=== PATIENT | male | born 1980 | race Caucasian/White ===

== ENCOUNTER 2024-02-16 11:02 | Emergency (ER) | payer SELFPAY ==
[~2024-02-16] VITALS: Ht 170.2 cm; Wt 80.0 kg
[2024-02-16 11:08] VITALS: O2SAT 97
[2024-02-16 11:52] VITALS: BP 112/63; PULSE 87; RESP 18; TEMP 36.61404; O2SAT 99
[2024-02-16 11:58] LABS: HEMATOCRIT. 32.3 % (42.0-52.0); HEMOGLOBIN. 11.1 g/dL (14.0-18.0); MEAN CORPUSCULAR HEMOGLOBIN 33.5 pg (28.0-32.0); MEAN CORPUSCULAR HGB CONC 34.3 g/dL (31.0-37.0); MEAN CORPUSCULAR VOLUME 97.7 fL (80.0-94.0); MEAN PLATELET VOLUME 6.2 fl (7.4-10.4); PLATELET 422 x1000/uL (130-400); RED CELL DISTRIBUTION WIDTH 17.1 % (11.6-14.6); WHITE BLOOD COUNT 4.3 x1000/uL (4.5-11.0)
[2024-02-16 12:19] LABS: CHLORIDE 109 mEq/L (98-107); SODIUM 147 mEq/L (136-145)
[2024-02-16 12:20] LABS: CARBON DIOXIDE 26 mEq/L (21-32)
[2024-02-16 12:21] LABS: CALCIUM 8.9 mg/dL (8.7-10.4)
[2024-02-16 12:25] LABS: CREATININE 0.7 mg/dL (0.6-1.3); GLUCOSE 98 mg/dL (70-105)
[2024-02-16 12:26] LABS: UREA NITROGEN BLOOD 9 mg/dL (9-23)
[2024-02-16 12:32] LABS: DIFFERENTIAL COMMENT 1
[2024-02-16] MEDS ORDERED: POTASSIUM CHLORIDE 30 MEQ in DEXT 5%/0.9% NACL 985 ML IV SCH (12:45)
[2024-02-16 12:46] LABS: ETHANOL BLOOD 405 mg/dL (<10); POTASSIUM 2.7 mEq/L (3.5-5.1)
[2024-02-16] MEDS ORDERED: KCL 10MEQ/50ML X 3 FOR TOTAL KCL 30MEQ/150ML IV SCH ×2 (13:00→13:30)
[2024-02-16] MEDS ORDERED: MAGNESIUM/ALUMINUM HYDROXIDE/SIMETHICONE 30ML UDC PO PRN (13:45)
[2024-02-16] MEDS ORDERED: ONDANSETRON HCL 4MG/2ML INJ IV PRN (13:45)
[2024-02-16] MEDS ORDERED: LORAZEPAM 2MG/ML INJ IV PRN ×2 (13:45)
[2024-02-16] MEDS ORDERED: DOCUSATE SODIUM 100MG CAPSULE PO PRN (13:45)
[2024-02-16] MEDS ORDERED: CLONIDINE 0.1MG TABLET PO PRN (13:45)
[2024-02-16] MEDS ORDERED: IPRATROPIUM/ALBUTEROL 0.5-3(2.5)MG/3ML NEB HHN PRN (13:45)
[2024-02-16] MEDS ORDERED: MVI, ADULT NO.1 10 ML, FOLIC ACID 1 MG, THIAMINE HCL 100 MG in SODIUM CHLORIDE 0.9% 1,0... IV SCH (15:00)
[2024-02-16 15:21] LABS: IRON 107 ug/dL (65-175)
[2024-02-16 15:24] LABS: ALBUMIN 3.8 g/dL (3.2-4.8); PHOSPHORUS 3.6 mg/dL (2.5-4.9); TOTAL IRON BINDING CAPACITY 257 ug/dl (250-425)
[2024-02-16 15:27] LABS: FOLIC ACID (FOLATE) SERUM 11.79 ng/mL (>5.38); VITAMIN B12 SERUM 444 pg/mL (211-911)
[2024-02-16] MEDS ORDERED: ENOXAPARIN 40MG/0.4ML SYR SUBCUT SCH (16:00)
[2024-02-16 16:43] LABS: ANISOCYTOSIS 1+; PLATELET ESTIMATE NORMAL
== END 2024-02-16 14:05 | disposition left against medical advice (07) ==
LOC: ER 11:12 → EDBEDREQ 11:54 → EDBEDREQSVC 12:49 → ER 14:05
DX: F10.129 Alcohol abuse with intoxication, unspecified (principal); R41.82 Altered mental status, unspecified; Y90.9 Presence of alcohol in blood, level not specified
CPT/HCPCS: 80048; 82040; 80320; 82607; 82746; 83540; 83550; 83735; 84100; 85025; 36415; 70450; 93005; 99284; J3490 ×2; J3411; J7030; Z7610; J3480; J7042; G0480